=== PATIENT | male | born 1955 | race Two or more races ===

== ENCOUNTER → 2017-06-19 | Emergency (ER) | payer BC ==
[~2017-06-19] VITALS: Ht 175.3 cm; Wt 83.9 kg
[~2017-06-19] MED LIST: BACTROBAN OINT22 GM TP; CEFADROXIL500 MG PO; JANUMET 50-5001 EACH; METFORMIN HCL500 MG
== END | disposition left against medical advice (07) ==
LOC: ER 04:10
DX: Z53.20 Procedure and treatment not carried out because of patient's decision for unspecified reasons (principal)